=== PATIENT | female | born 1945 | race Caucasian/White ===

== ENCOUNTER 2016-07-12 08:04 | Emergency (ER) | payer MEDICARE ==
[~2016-07-12] VITALS: Ht 167.6 cm; Wt 75.4 kg
[2016-07-12] MEDS ORDERED: SODIUM CHLORIDE 0.9% 1,000ML IVBOLUS ONE (09:00)
[2016-07-12 09:07] LABS: HEMOGLOBIN 14.2 g/dL (11.7-16.4)
[2016-07-12 09:17] LABS: ACETAMINOPHEN 16 mcg/mL (10-30); ASPARTATE AMINO TRANSFERASE 12 U/L (15-37); BLOOD UREA NITROGEN 17 mg/dL (7-18)
[2016-07-12 09:24] LABS: IS PT STATUS REG ER OR PRE ER? YES
[2016-07-12 11:34] VITALS: BP 154/79
== END 2016-07-12 11:37 | disposition home or self-care (01) ==
LOC: ED 11:31
DX: G51.0 Bell's palsy (principal)
CPT/HCPCS: 36415; 70450; 70551; 71010; 80053; 80307; 80329; 84484; 85025; 85610; 85730; 93005; 96360; 96361; 99285; J7030; G0480

== ENCOUNTER → 2019-04-13 | Outpatient (CLI) | payer MEDICARE | END | disposition home or self-care (01) | LOC: CFH 12:49 | PROVIDERS: ATTEND Family Medicine | DX: R92.2 Inconclusive mammogram (principal) | CPT/HCPCS: 77065; G0279 ==

== ENCOUNTER 2019-06-29 10:04 | Outpatient (CLI) | payer MEDICARE | END 2019-06-29 23:59 | disposition home or self-care (01) | LOC: LAB 10:04 → RAD 23:59 | PROVIDERS: ATTEND Family Medicine | DX: M25.522 Pain in left elbow (principal) ==

== ENCOUNTER 2019-09-15 13:09 | Emergency (ER) | payer MEDICARE ==
[~2019-09-15] VITALS: Ht 167.6 cm; Wt 72.1 kg
--- NOTE | 2019-09-15 13:18 | NUR ---
EKG IN TRIAGE.
--- NOTE | 2019-09-15 13:36 | NUR ---
THIS IS A 74 YO F W/ C/O CP CURRENTLY 08/25 THAT STARTED LAST NIGHT AT 11:00PM (WAS 01/25). PAIN BEGAN AFTER WORKING OUT W/ FRIENDS. PT REPORTS LAST NIGHT THE PAIN RADIATED INTO LT SHOULDER AND BACK, NOW IS MORE LOCALIZED. PT DENIES N/V/DIZZINESS/SOB. DOES NOT TAKE ANY HOME MEDS. [facility] [facility] IN REACH AND SIDE RAILS UPX2. [employer]. AWAITING ED EVAL.
[2019-09-15] MEDS ORDERED: KETOROLAC 30 MG/1 ML ONE (13:45)
[2019-09-15] MEDS ORDERED: ASPIRIN 81 MG TABLET CHEW ONE (13:45)
--- NOTE | 2019-09-15 13:59 | NUR ---
PIV STARTED, LABS DRAWN AND SENT TO LAB. PT DOES NOT WANT PAIN MEDS AT THIS TIME.
[2019-09-15] MEDS ORDERED: SODIUM CHLORIDE FLUSH 10ML SYR IVF ONE (14:00)
[2019-09-15] MEDS ORDERED: KETOROLAC 30 MG/1 ML IVPush ONE (14:00)
[2019-09-15] MEDS ORDERED: ASPIRIN 81 MG TABLET CHEW PO ONE (14:00)
[2019-09-15 14:08] LABS: BASOPHILS # (AUTO) 0.03 x10^3/uL (0-0.1); BASOPHILS % (AUTO) 1 % (0-1); EOSINOPHILS # (AUTO) 0.11 x10^3/uL (0-0.4); EOSINOPHILS % (AUTO) 2 % (1-7); LYMPHOCYTES # (AUTO) 1.36 x10^3/uL (1-3.4); LYMPHOCYTES % (AUTO) 23 % (22-44); MD NO; MEAN CORPUSCULAR HEMOGLOBIN 28.5 pg (27.0-34.8); MEAN CORPUSCULAR VOLUME 86.3 fL (80-100); MEAN PLATELET VOLUME 10.3 fL (7.4-10.4); MONOCYTES # (AUTO) 0.54 x10^3/uL (0.2-0.8); MONOCYTES % (AUTO) 9 % (2-9); NEUTROPHILS # (AUTO) 3.98 x10^3/uL (1.8-6.8); NEUTROPHILS % (AUTO) 66 % (42-75); PLATELET COUNT 147 x10^3/uL (130-400); RED BLOOD COUNT 4.85 x10^6/uL (3.82-5.3); RED CELL DISTRIBUTION WIDTH 14.2 % (9.6-15.2)
[2019-09-15 14:17] LABS: ALBUMIN 3.8 g/dL (3.4-5.0); ANION GAP 7 mmol/L (5-15); CALCIUM 9.1 mg/dL (8.5-10.1); CHLORIDE 106 mmol/L (98-107); CREATININE 0.94 mg/dL (0.55-1.02)
[2019-09-15 14:21] LABS: TROPONIN I < 0.015 ng/mL (0.000-0.045)
--- NOTE | 2019-09-15 14:26 | NUR ---
ALL TESTS ARE RESULTED. PT IS UP FOR RECHECK AT THIS TIME.
--- NOTE | 2019-09-15 14:36 | NUR ---
TASK RN NOTE: PT SITTING UP IN BED USING CELL PHONE. NAD NOTED AT THIS TIME. AWAITING ERMD RECHECK. CURTAIN PULLED FOR PT PRIVACY.
[2019-09-15 15:06] VITALS: BP 131/79
== END 2019-09-15 15:09 | disposition home or self-care (01) ==
LOC: ED 15:05
DX: R07.2 Precordial pain (principal); R94.31 Abnormal electrocardiogram [ECG] [EKG]
CPT/HCPCS: 36415; 71045; 80048; 82040; 84484; 85025; 85379; 93005; 99285

== ENCOUNTER → 2020-04-16 | Outpatient (CLI) | payer MEDICARE | END | disposition home or self-care (01) | LOC: CFH 09:37 | PROVIDERS: ATTEND Family Medicine | DX: Z12.31 Encounter for screening mammogram for malignant neoplasm of breast (principal) | CPT/HCPCS: 77063; 77067 ==